=== PATIENT | female | born 2000 | race African-American/Black ===

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

== ENCOUNTER 2019-04-28 14:24 | Emergency (ER) | payer MEDICAID ==
[~2019-04-28] VITALS: Ht 157.5 cm; Wt 72.6 kg
[~2019-04-28 14:24] MED LIST changes: +CEPHALEXIN500 MG ORAL; +VITAFOL-OB+DHA1 EACH PO
[2019-04-28 14:30] VITALS: BP 125/69
[2019-04-28] MEDS ORDERED: Ipratropium 0.02% Inh Soln 2.5ml UD HHN ONE (14:45)
[2019-04-28] MEDS ORDERED: Albuterol ud Inhalation HHN ONE ×2 (14:45→15:00)
--- NOTE | 2019-04-28 15:34 | Emergency Room Report ---
History of Present Illness General Chief Complaint: Asthma Source: Patient Present Illness HPI Patient presents with complaints of asthma exacerbation Symptoms became worse over the past 2 days she feels short of breath increased cough denies any chest pain denies any fevers Denies any vomiting or diarrhea Denies any recent travel denies any pleurisy patient has history of asthma and has had flareups in the past Patient also reports that she has been having runny nose mild congestion and body aches Denies any neck pain or photophobia Allergies: Coded Allergies: FISH CONTAINING PRODUCTS (Verified Allergy, Unknown, Shortness of Breath, 06/17/18) Patient History Past Medical History: see triage record Last Menstrual Period: [id number] Now: No Reviewed Nursing Documentation: PMH: Agreed; PSxH: Agreed Nursing Documentation-PMH Past Medical History: No History, Except For Hx Cardiac Problems: No Hx Asthma: Yes Hx Gastrointestinal Problems: No Hx Neurological Problems: No Review of Systems All Other Systems: negative except mentioned in HPI Physical Exam Vital Signs Date Time Temp Pulse Resp B/P (MAP) Pulse Ox O2 Delivery O2 Flow Rate FiO2 04/28/19 14:30 97.9 93 19 125/69 93 Room Air 04/28/19 14:53 21 Sp02 EP Interpretation: reviewed, normal General Appearance: well appearing, no apparent distress Head: normocephalic, atraumatic Eyes: bilateral eye PERRL, bilateral eye EOMI ENT: hearing grossly normal Neck: supple Respiratory: no respiratory distress, no retraction, wheezing - Bilaterally Cardiovascular #1: regular rate, rhythm Gastrointestinal: normal bowel sounds, non tender, soft Genitourinary: no CVA tenderness Musculoskeletal: normal inspection Neurologic: alert, oriented x3 Psychiatric: normal inspection Skin: no rash Lymphatic: no adenopathy Medical Decision Making Diagnostic Impression: Primary Impression: Asthma Additional Impression: Flu ER Course Multiple differentials including but not limited to flu, pneumonia, asthma exacerbation all considered Patient received repeat breathing treatments lung sounds have improved patient symptoms initiated 1 to 2 days ago and patient is a candidate for Tamiflu patient will be provided with prescription for home And will return with any worsening symptoms Last Vital Signs Date Time Temp Pulse Resp B/P (MAP) Pulse Ox O2 Delivery O2 Flow Rate FiO2 04/28/19 14:53 89 18 100 Room Air 21 87 18 93 04/28/19 14:32 98.4 120/73 (89) Status: improved Disposition: HOME, SELF-CARE Condition: Improved Scripts Ibuprofen* (MOTRIN*) 600 Mg Tablet 600 MG ORAL Q8H PRN for For Pain, #20 TAB 0 Refills Prov: Shanita Benson DO 04/28/19 Methylprednisolone (Methylprednisolone*) 4MG Dspk 4 MG ORAL DIRECTED for 6 Days, #21 EA 0 Refills Day 1: Two tablets before breakfast, one after lunch, one after dinner, and two at bedtime. If started late in the day, take all six tablets at once or divide into two or three doses, unless otherwise directed by prescriber. Day 2: One tablet before breakfast, one after lunch, one after dinner, and two at bedtime Day 3: One tablet before breakfast, one after lunch, one after dinner, and one at bedtime Day 4: One tablet before breakfast, one after lunch, and one at bedtime Day 5: One tablet before breakfast and one at bedtime Day 6: One tablet before breakfast Prov: Shanita Benson DO 04/28/19 Oseltamivir Phosphate (Tamiflu) 75 Mg Capsule 75 MG ORAL TWICE A DAY for 5 Days, CAP Prov: Shanita Benson DO 04/28/19 Referrals: [facility]ERR[facility] (PCP) Additional Instructions: Patient is provided with the discharge instructions notified to follow up with primary doctor in the next 2-3 days otherwise return to the er with any worsening symptoms. Please note that this report is being documented using [employer] technology. This can lead to erroneous entry secondary to incorrect interpretation by the dictating instrument. Shanita Benson DO Apr 28, 2019 15:34
[2019-04-28] MEDS ORDERED: IBUPROFEN600 MG ORAL (15:57)
[2019-04-28] MEDS ORDERED: MEDROL DOSEPAK4 MG ORAL (15:57)
[2019-04-28] MEDS ORDERED: TAMIFLU75 MG ORAL (15:57)
[2019-04-28 16:13] VITALS: BP 121/76
== END 2019-04-28 16:14 | disposition home or self-care (01) ==
LOC: EMR 15:22
DX: J45.909 Unspecified asthma, uncomplicated (principal); J11.1 Influenza due to unidentified influenza virus with other respiratory manifestations; Z91.013 Allergy to seafood
CPT/HCPCS: J7512; Z7502; 99284